=== PATIENT | male | born 1950 | race Caucasian/White ===

== ENCOUNTER 2023-10-01 15:54 | Observation (INO) | payer MEDICARE ==
[2023-10-01 17:26] LABS: Absolute Neutrophil Ct (ANC) 5.55 x10^3/uL (1.4-6.9); BASOPHIL % 0.5 % (0.0-0.4); Basophil (Absolute #) 0.04 x10^3/uL (0-0.4); Eosinophil % 1.6 % (0.00-5.0); Eosinophil (Absolute #) 0.12 x10^3/uL (0-0.5); Hemoglobin 16.5 g/dL (12.5-18.0); IMMATURE GRAN # 0.02 x10^3u/L (0.00-0.03); IMMATURE GRAN % 0.3 % (0.00-0.4); Lymphocyte (Absolute #) 0.85 x10^3/uL (1.0-4.6); Lymphocytes % 11.7 % (24.0-44.0); Mean Cell Volume 91.9 fL (78-100); Mean Corpuscular Hemoglobin 30.3 pg (26-32); Mean Platelet Volume 10.8 fL (7.5-11.0); Monocyte (Absolute #) 0.71 x10^3/uL (0.0-1.3); Monocytes % 9.7 % (0.0-12.0); Neutrophil % 76.2 % (36.0-66.0); Platelet Count 208 x10^3/uL (150-450); Red Blood Count 5.44 x10^6/uL (4.1-5.6); Red Cell Distribution Width 12.7 % (11.5-14.0); White Blood Count 7.3 x10^3/uL (4.0-10.5)
--- NOTE | 2023-10-01 17:34 | ERPHSYRPT ---
- History of Present Illness Time Seen by Provider: 10/01/23 16:55 Source: patient Exam Limitations: no limitations Patient Subjective Stated Complaint: Pt states "He was at a and he got weak and looked like he was going to pass out. he has had some instances where his sugar drops but this time he ate 4 peanut butter crackers and he just didn't seem to come around as fast." Triage Nursing Assessment: Pt presented alert and oriented X 3, skin pwd. Pt ambulates with an upright steady gait, able to speak in clear full sentences. Pt resting comfortably on the bed. Physician History: Patient is 73-year-old male presents to our ED for evaluation of tw0 syncopal episode. Patient was at a home when symptoms developed. reports patient was sitting in a chair when he passed out twice. No collapse patient states he has not eaten very much. Patient had similar symptoms in the past that was related to a bout of hypoglycemia. Upon arrival patient's blood sugar was 208. No associated chest pain no shortness of breath. No nausea vomiting or diaphoresis. Symptoms are mild to moderate in intensity. No specific worsening improving factors. Patient otherwise feels well. He voices no other complaints or concerns at this time. Patient admits to a history of a left bundle branch block. Portions of this note were created with voice recognition technology. There may be grammatical, spelling, punctuation or sound alike errors Timing/Duration: today Severity: moderate Modifying Factors: Improves With: nothing Associated Symptoms: denies symptoms Allergies/Adverse Reactions: walnut Allergy (Severe, Verified 10/01/23 16:28) anaphylactic Home Medications: Amlodipine Besylate 5 mg [Norvasc 5 mg] 10 mg PO DAILY 10/01/23 [History] Meloxicam [Mobic] 15 mg PO DAILY 10/01/23 [History] atenoloL [Atenolol] 25 mg PO DAILY 10/01/23 [History] Hx Tetanus, Diphtheria Vaccination/Date Given: No Hx Influenza Vaccination/Date Given: No Hx Pneumococcal Vaccination/Date Given: No Immunizations Up to Date: No Travel Risk - International Travel Have you traveled outside of the country in past 3 weeks: No - Coronavirus Screening Are you exhibiting any of the following symptoms?: No Close contact with a COVID-19 positive Pt in past 14-21 Days: No - Vaccine Status Have you recieved a Covid-19 vaccination: Yes [employer]: Moderna - Vaccination Dates Date of 2cond Vaccination (if applicable): 2020 - Review of Systems Constitutional: No Symptoms, No Fever, No Chills Eyes: No Symptoms Ears, Nose, & Throat: No Symptoms Respiratory: No Symptoms, No Cough, No Dyspnea Cardiac: No Symptoms, No Chest Pain, No Edema, No Syncope Abdominal/Gastrointestinal: No Symptoms, No Abdominal Pain, No Nausea, No Vomiting, No Diarrhea Genitourinary Symptoms: No Symptoms, No Dysuria Musculoskeletal: No Symptoms, No Back Pain, No Neck Pain Skin: No Symptoms, No Rash Neurological: No Symptoms, No Dizziness, No Focal Weakness, No Sensory Changes Psychological: No Symptoms Endocrine: No Symptoms Hematologic/Lymphatic: No Symptoms Immunological/Allergic: No Symptoms All Other Systems: Reviewed and Negative - Past Medical History Pertinent Past Medical History: Yes Neurological History: No Pertinent History Cardiac History: Hypertension Respiratory History: No Pertinent History Endocrine Medical History: No Pertinent History Musculoskeletal History: Arthritis Other Medical History: TYLENOL PRN - Past Surgical History Past Surgical History: Yes Other Surgical History: bilateral shoulder. hernia - Social History Smoking Status: Never smoker Exposure to second hand smoke: No Drug Use: none Patient Lives Alone: No - Nursing Vital Signs Nursing Vital Signs: Initial Vital Signs Temperature 97.2 F 10/01/23 16:22 Pulse Rate 80 10/01/23 16:22 Respiratory Rate 20 10/01/23 16:22 Blood Pressure 158/80 10/01/23 16:22 O2 Sat by Pulse Oximetry 98 10/01/23 16:22 Pain Scale Pain Intensity 0 - Physical Exam General Appearance: no apparent distress, alert Eye Exam: PERRL/EOMI, eyes nml inspection Ears, Nose, Throat Exam: normal ENT inspection, TMs normal, pharynx normal, moist mucous membranes Neck Exam: normal inspection, non-tender, supple, full range of motion Respiratory Exam: normal breath sounds, lungs clear, No respiratory distress Cardiovascular Exam: regular rate/rhythm, normal heart sounds, normal peripheral pulses Gastrointestinal/Abdomen Exam: soft, normal bowel sounds, No tenderness, No mass Back Exam: normal inspection, normal range of motion, No CVA tenderness, No vertebral tenderness Extremity Exam: normal inspection, normal range of motion, pelvis stable Neurologic Exam: alert, oriented x 3, cooperative, normal mood/affect, nml cerebellar function, nml station & gait, sensation nml, No motor deficits Skin Exam: normal color, warm, dry, No rash Lymphatic Exam: No adenopathy SpO2 Interpretation: normal SpO2: 98 O2 Delivery: Room Air - Course Nursing assessment & vital signs reviewed: Yes EKG Interpreted by Me: RATE (78), Sinus Rhythm, NORMAL AXIS, Right Bundle Branch Block - CT Exams Head CT Interpretation: Tele-radiologist Report (Continued normal head) Ordered Tests: Active Orders 24 hr Category Date Time Status Feed Weigher STAT Care 10/01/23 17:07 Active EKG-ER Only STAT Care 10/01/23 17:07 Active IV Insertion STAT Care 10/01/23 17:07 Active Pulse Oximetry (ED) STAT Care 10/01/23 17:07 Active HEAD WITHOUT CONTRAST [CT] Stat Exams 10/01/23 17:43 Taken CBC W DIFF Stat Lab 10/01/23 17:23 Completed CMP Stat Lab 10/01/23 17:23 Completed D-DIMER QUANTITATIVE Stat Lab 10/01/23 17:23 Completed NT PRO BNPII Stat Lab 10/01/23 17:23 Completed POCT GLUCOSE Stat Lab 10/01/23 16:13 Completed TROPONIN Q4H Lab 10/01/23 17:23 Completed TROPONIN Q4H Lab 10/01/23 21:15 Ordered TROPONIN Q4H Lab 10/02/23 01:15 Ordered Transfer Order Routine Transfer 10/01/23 Ordered Lab/Rad Data: Laboratory Result Diagrams 10/01/23 17:23 10/01/23 17:23 Laboratory Results 10/01/23 10/01/23 10/01/23 Range/Units 17:23 17:23 17:23 WBC (4.0-10.5) x10^3/uL RBC (4.1-5.6) x10^6/uL Hgb (12.5-18.0) g/dL Hct (42-50) % MCV (78-100) fL MCH (26-32) pg MCHC (32-36) g/dL RDW (11.5-14.0) % Plt Count (150-450) x10^3/uL MPV (7.5-11.0) fL Gran % (36.0-66.0) % Immature Gran % (Auto) (0.00-0.4) % Nucleat RBC Rel Count (0.00-0.1) % Eos # (Auto) (0-0.5) x10^3/uL Immature Gran # (Auto) (0.00-0.03) x10^3u/L Absolute Lymphs (auto) (1.0-4.6) x10^3/uL Absolute Monos (auto) (0.0-1.3) x10^3/uL Absolute Nucleated RBC (0.00-0.01) x10^3u/L Lymphocytes % (24.0-44.0) % Monocytes % (0.0-12.0) % Eosinophils % (0.00-5.0) % Basophils % (0.0-0.4) % Absolute Granulocytes (1.4-6.9) x10^3/uL Basophils # (0-0.4) x10^3/uL D-Dimer 0.37 (0.0-0.50) mg/L Sodium (137-145) mmol/L Potassium (3.5-5.1) mmol/L Chloride (98-107) mmol/L Carbon Dioxide (22-30) mmol/L Anion Gap (5-15) MEQ/L BUN (9-20) mg/dL Creatinine (0.66-1.25) mg/dL Estimated GFR ML/MIN Glucose (74-106) mg/dL POC Glucometer (74 to 106) mg/dL Calcium (8.4-10.2) mg/dL Total Bilirubin (0.2-1.3) mg/dL AST (17-59) U/L ALT (0-50) U/L Alkaline Phosphatase (38-126) U/L Troponin I < 0.012 (0.000-0.034) ng/mL NT-Pro-B Natriuret Pep 556 (<300) pg/mL Serum Total Protein (6.3-8.2) g/dL Albumin (3.5-5.0) g/dL 10/01/23 10/01/23 10/01/23 Range/Units 17:23 17:23 16:13 WBC 7.3 (4.0-10.5) x10^3/uL RBC 5.44 (4.1-5.6) x10^6/uL Hgb 16.5 (12.5-18.0) g/dL Hct 50.0 (42-50) % MCV 91.9 (78-100) fL MCH 30.3 (26-32) pg MCHC 33.0 (32-36) g/dL RDW 12.7 (11.5-14.0) % Plt Count 208 (150-450) x10^3/uL MPV 10.8 (7.5-11.0) fL Gran % 76.2 H (36.0-66.0) % Immature Gran % (Auto) 0.3 (0.00-0.4) % Nucleat RBC Rel Count 0.0 (0.00-0.1) % Eos # (Auto) 0.12 (0-0.5) x10^3/uL Immature Gran # (Auto) 0.02 (0.00-0.03) x10^3u/L Absolute Lymphs (auto) 0.85 L (1.0-4.6) x10^3/uL Absolute Monos (auto) 0.71 (0.0-1.3) x10^3/uL Absolute Nucleated RBC 0.00 (0.00-0.01) x10^3u/L Lymphocytes % 11.7 L (24.0-44.0) % Monocytes % 9.7 (0.0-12.0) % Eosinophils % 1.6 (0.00-5.0) % Basophils % 0.5 (0.0-0.4) % Absolute Granulocytes 5.55 (1.4-6.9) x10^3/uL Basophils # 0.04 (0-0.4) x10^3/uL D-Dimer (0.0-0.50) mg/L Sodium 136 L (137-145) mmol/L Potassium 4.2 (3.5-5.1) mmol/L Chloride 103 (98-107) mmol/L Carbon Dioxide 25 (22-30) mmol/L Anion Gap 12.5 (5-15) MEQ/L BUN 21 H (9-20) mg/dL Creatinine 0.66 (0.66-1.25) mg/dL Estimated GFR 98.4 ML/MIN Glucose 151 H (74-106) mg/dL POC Glucometer 208 H (74 to 106) mg/dL Calcium 9.1 (8.4-10.2) mg/dL Total Bilirubin 0.50 (0.2-1.3) mg/dL AST 27 (17-59) U/L ALT 17 (0-50) U/L Alkaline Phosphatase 81 (38-126) U/L Troponin I (0.000-0.034) ng/mL NT-Pro-B Natriuret Pep (<300) pg/mL Serum Total Protein 7.2 (6.3-8.2) g/dL Albumin 4.1 (3.5-5.0) g/dL - Progress Progress: improved Progress Note: Case discussed with Dr. Tang at 7:[address] Tang accepts admission to observation. Plan of care discussed with patient. He agrees to admission at [facility] for further evaluation and treatment. Of note patient reports he has a known left bundle branch block. We attempted to obtain an old EKG for comparison. However in spite of our attempts contact the outside hospitals we do not have a old EKG at this time. Patient is a 73-year-old male presents to our ED with a syncopal episode. Patient had a similar episode in the past due to hypoglycemia. Patient's blood glucose upon arrival to our ED was 208. However states that they gave patient a sugary drink prior to arrival. Patient stated that he was having some brain fog. Physical exam including neuroexam was otherwise negative. CBC CMP essentially nonremarkable. D-dimer negative. Troponin negative. CT head negative for acute intracranial pathology. Patient will be admitted for syncopal workup. Portions of this note were created with voice recognition technology. There may be grammatical, spelling, punctuation or sound alike errors Complexity of problem addressed is moderate acute complicated No critical care time Complexity of data reviewed and analyzed is extensive. Test ordered test reviewed. Results analyzed and correlated clinically with history and physical examination. Management discussed with hospitalist Dr. Tang who accepts admission 7:49 PM. Risk of complication and or risk of morbidity/mortality of patient management is high. Patient requires hospitalization for further evaluation and treatment. Vital stable. Time spent to admit patient approximately 15 to 20 minutes. Plan of care established for shared decision making. No social determinants of health present impede follow-up. Portions of this note were created with voice recognition technology. There may be grammatical, spelling, punctuation or sound alike errors 10/01/23 19:49 Discussed with : Other (Dr. Tang) Counseled pt/family regarding: lab results, diagnosis, rad results - Departure Departure Disposition: Home Clinical Impression: Syncope, Left bundle branch block Condition: Stable Critical Care Time: No Referrals: PACO HUMPHREY [Primary Care Provider] - Follow up/PCP as directed
[2023-10-01 17:53] LABS: ALBUMIN 4.1 g/dL (3.5-5.0); ANION GAP 12.5 MEQ/L (5-15); BILIRUBIN,TOTAL 0.5 mg/dL (0.2-1.3); Calcium 9.1 mg/dL (8.4-10.2); Creatinine 1 0.66 mg/dL (0.66-1.25); EST GLOMERULAR FILTRATION RATE 98.4 ML/MIN; Potassium 4.2 mmol/L (3.5-5.1); Total Protein 7.2 g/dL (6.3-8.2)
[2023-10-01] MEDS ORDERED: BABY ASPIRIN 81 MG CHEW ONE (21:13)
[2023-10-01] MEDS ORDERED: NITRO-BID 2% UD PACKETS ONE (21:14)
[2023-10-01] MEDS ORDERED: Flomax 0.4 MG PO SCH (23:40)
--- NOTE | 2023-10-02 00:27 | PCM.HP ---
History of Present Illness - Chief Complaint Chief Complaint: Syncope Date: 10/01/23 History of Present Illness: Mr. Valenzuela is a 73 year old male with a past medical history significant for hypertension, prediabetes and previous episode of syncope when he was thought to have low blood sugars who was at a when he became faint and almost passed out. He was given some food but did not snap out of it, so he was taken to the ER. On the way, he ate more sweet things and upon arrival, his blood sugar was 208. He reports that he has been traveling so his diet has not been well balanced and regular as it normally is. He denies any loss of strength, weakness, or slurred speech. No chest pain or palpitations. Initial cardiac enzymes negative. - Review of Systems Constitutional: No Symptoms Ears, Nose, & Throat: No Symptoms Respiratory: No Cough, No Orthopnea, No Short Of Breath Cardiac: No Chest Pain, No Edema Abdominal/Gastrointestinal: No Symptoms Genitourinary Symptoms: No Symptoms Musculoskeletal: No Symptoms Skin: No Symptoms Neurological: No Symptoms Psychological: No Symptoms Endocrine: No Symptoms Medications & Allergies Home Medications: Home Medication List Amlodipine Besylate 5 mg [Norvasc 5 mg] 10 mg PO DAILY 10/01/23 [History Confirmed 10/01/23] Meloxicam [Mobic] 15 mg PO DAILY 10/01/23 [History Confirmed 10/01/23] Tamsulosin HCl 0.4 mg [Flomax 0.4 MG] 0.4 mg PO HS 10/01/23 [History Confirmed 10/01/23] atenoloL [Atenolol] 25 mg PO BID 10/01/23 [History Confirmed 10/01/23] Allergies/Adverse Reactions: Allergies Allergy/AdvReac Type Severity Reaction Status Date / Time walnut Allergy Severe anaphylacti Verified 10/01/23 16:28 c - Past Medical History Past Medical History: Yes Neurological History: No Pertinent History Cardiac History: Hypertension Respiratory History: No Pertinent History Endocrine Medical History: No Pertinent History Musculoskelatal History: Arthritis GI Medical History: No Pertinent History History: No Pertinent History Male Reproductive Disorders: No Pertinent History Comment: TYLENOL PRN - Past Surgical History Past Surgical History: Yes Neuro Surgical History: No Pertinent History Cardiac History: No Pertinent History Respiratory Surgery: No Pertinent History GI Surgical History: No Pertinent History Other Surgical History: bilateral shoulder. hernia repair - Social History Smoking Status: Never smoker Exposure to second hand smoke: No Alcohol: None Drug Use: none - Physical Exam Vital Signs: Vital Signs - 24 hr Temp Pulse Resp BP BP Pulse Ox 10/01/23 23:51 97.6 F 77 24 192/93 94 L 10/01/23 23:45 192/93 10/01/23 21:38 98 10/01/23 21:18 97.0 F 76 18 174/85 98 10/01/23 20:00 81 18 171/87 94 L 10/01/23 19:57 98 10/01/23 19:00 82 20 172/90 98 10/01/23 17:37 97.2 F 80 20 146/76 98 10/01/23 17:23 98 10/01/23 16:22 97.2 F 80 20 158/80 98 General Appearance: no apparent distress Neurologic Exam: alert, oriented x 3 Ears, Nose, Throat Exam: dry mucous membranes Neck Exam: supple Respiratory Exam: No respiratory distress Cardiovascular Exam: regular rate/rhythm Gastrointestinal/Abdomen Exam: soft Extremity Exam: normal inspection, No pedal edema, No swelling Skin Exam: normal color Results - Labs Lab/Micro Results: Lab Results-Last 24 Hours 10/01/23 10/01/23 10/01/23 Range/Units 16:13 17:23 17:23 WBC 7.3 (4.0-10.5) x10^3/uL RBC 5.44 (4.1-5.6) x10^6/uL Hgb 16.5 (12.5-18.0) g/dL Hct 50.0 (42-50) % MCV 91.9 (78-100) fL MCH 30.3 (26-32) pg MCHC 33.0 (32-36) g/dL RDW 12.7 (11.5-14.0) % Plt Count 208 (150-450) x10^3/uL MPV 10.8 (7.5-11.0) fL Gran % 76.2 H (36.0-66.0) % Immature Gran % (Auto) 0.3 (0.00-0.4) % Nucleat RBC Rel Count 0.0 (0.00-0.1) % Eos # (Auto) 0.12 (0-0.5) x10^3/uL Immature Gran # (Auto) 0.02 (0.00-0.03) x10^3u/L Absolute Lymphs (auto) 0.85 L (1.0-4.6) x10^3/uL Absolute Monos (auto) 0.71 (0.0-1.3) x10^3/uL Absolute Nucleated RBC 0.00 (0.00-0.01) x10^3u/L Lymphocytes % 11.7 L (24.0-44.0) % Monocytes % 9.7 (0.0-12.0) % Eosinophils % 1.6 (0.00-5.0) % Basophils % 0.5 (0.0-0.4) % Absolute Granulocytes 5.55 (1.4-6.9) x10^3/uL Basophils # 0.04 (0-0.4) x10^3/uL D-Dimer (0.0-0.50) mg/L Sodium 136 L (137-145) mmol/L Potassium 4.2 (3.5-5.1) mmol/L Chloride 103 (98-107) mmol/L Carbon Dioxide 25 (22-30) mmol/L Anion Gap 12.5 (5-15) MEQ/L BUN 21 H (9-20) mg/dL Creatinine 0.66 (0.66-1.25) mg/dL Estimated GFR 98.4 ML/MIN Glucose 151 H (74-106) mg/dL POC Glucometer 208 H (74 to 106) mg/dL Calcium 9.1 (8.4-10.2) mg/dL Total Bilirubin 0.50 (0.2-1.3) mg/dL AST 27 (17-59) U/L ALT 17 (0-50) U/L Alkaline Phosphatase 81 (38-126) U/L Troponin I (0.000-0.034) ng/mL NT-Pro-B Natriuret Pep (<300) pg/mL Serum Total Protein 7.2 (6.3-8.2) g/dL Albumin 4.1 (3.5-5.0) g/dL 10/01/23 10/01/23 10/01/23 Range/Units 17:23 17:23 17:23 WBC (4.0-10.5) x10^3/uL RBC (4.1-5.6) x10^6/uL Hgb (12.5-18.0) g/dL Hct (42-50) % MCV (78-100) fL MCH (26-32) pg MCHC (32-36) g/dL RDW (11.5-14.0) % Plt Count (150-450) x10^3/uL MPV (7.5-11.0) fL Gran % (36.0-66.0) % Immature Gran % (Auto) (0.00-0.4) % Nucleat RBC Rel Count (0.00-0.1) % Eos # (Auto) (0-0.5) x10^3/uL Immature Gran # (Auto) (0.00-0.03) x10^3u/L Absolute Lymphs (auto) (1.0-4.6) x10^3/uL Absolute Monos (auto) (0.0-1.3) x10^3/uL Absolute Nucleated RBC (0.00-0.01) x10^3u/L Lymphocytes % (24.0-44.0) % Monocytes % (0.0-12.0) % Eosinophils % (0.00-5.0) % Basophils % (0.0-0.4) % Absolute Granulocytes (1.4-6.9) x10^3/uL Basophils # (0-0.4) x10^3/uL D-Dimer 0.37 (0.0-0.50) mg/L Sodium (137-145) mmol/L Potassium (3.5-5.1) mmol/L Chloride (98-107) mmol/L Carbon Dioxide (22-30) mmol/L Anion Gap (5-15) MEQ/L BUN (9-20) mg/dL Creatinine (0.66-1.25) mg/dL Estimated GFR ML/MIN Glucose (74-106) mg/dL POC Glucometer (74 to 106) mg/dL Calcium (8.4-10.2) mg/dL Total Bilirubin (0.2-1.3) mg/dL AST (17-59) U/L ALT (0-50) U/L Alkaline Phosphatase (38-126) U/L Troponin I < 0.012 (0.000-0.034) ng/mL NT-Pro-B Natriuret Pep 556 (<300) pg/mL Serum Total Protein (6.3-8.2) g/dL Albumin (3.5-5.0) g/dL 10/01/23 Range/Units 20:55 WBC (4.0-10.5) x10^3/uL RBC (4.1-5.6) x10^6/uL Hgb (12.5-18.0) g/dL Hct (42-50) % MCV (78-100) fL MCH (26-32) pg MCHC (32-36) g/dL RDW (11.5-14.0) % Plt Count (150-450) x10^3/uL MPV (7.5-11.0) fL Gran % (36.0-66.0) % Immature Gran % (Auto) (0.00-0.4) % Nucleat RBC Rel Count (0.00-0.1) % Eos # (Auto) (0-0.5) x10^3/uL Immature Gran # (Auto) (0.00-0.03) x10^3u/L Absolute Lymphs (auto) (1.0-4.6) x10^3/uL Absolute Monos (auto) (0.0-1.3) x10^3/uL Absolute Nucleated RBC (0.00-0.01) x10^3u/L Lymphocytes % (24.0-44.0) % Monocytes % (0.0-12.0) % Eosinophils % (0.00-5.0) % Basophils % (0.0-0.4) % Absolute Granulocytes (1.4-6.9) x10^3/uL Basophils # (0-0.4) x10^3/uL D-Dimer (0.0-0.50) mg/L Sodium (137-145) mmol/L Potassium (3.5-5.1) mmol/L Chloride (98-107) mmol/L Carbon Dioxide (22-30) mmol/L Anion Gap (5-15) MEQ/L BUN (9-20) mg/dL Creatinine (0.66-1.25) mg/dL Estimated GFR ML/MIN Glucose (74-106) mg/dL POC Glucometer (74 to 106) mg/dL Calcium (8.4-10.2) mg/dL Total Bilirubin (0.2-1.3) mg/dL AST (17-59) U/L ALT (0-50) U/L Alkaline Phosphatase (38-126) U/L Troponin I < 0.012 (0.000-0.034) ng/mL NT-Pro-B Natriuret Pep (<300) pg/mL Serum Total Protein (6.3-8.2) g/dL Albumin (3.5-5.0) g/dL - Radiology Impressions Radiology Exams & Impressions: Radiology Procedures Category Date Time Status HEAD WITHOUT CONTRAST [CT] Stat Exams 10/01/23 17:43 Taken Assessment/Plan (1) Left bundle branch block Current Visit: Yes Status: Acute Assessment & Plan: LBBB - pt aware of this, no plans for intervention 1. Monitor on telemetry 2. Cardiology eval as outpatient if no further syncopal events during hospitalization Code(s): I44.7 - LEFT BUNDLE-BRANCH BLOCK, UNSPECIFIED (2) Syncope Current Visit: Yes Status: Acute Assessment & Plan: Syncope - ? related to low blood sugars as per previous episode but does have LBBB, which may suggest cardiac etiology 1. Admit to hospital for observation 2. Telemetry 3. Trend cardiac enzymes 4. Monitor blood sugars 5. ? need for further cardiac testing 6. DVT/GI prophylaxis Code(s): R55 - SYNCOPE AND COLLAPSE Telemedicine Encounter - Telemedicine Encounter Telemedicine Encounter: The entirety of this encounter was performed via Telemedicine"
[2023-10-02 05:38] LABS: Hematocrit 49.9 % (42-50); Hemoglobin 16.4 g/dL (12.5-18.0); Mean Cell Volume 90.7 fL (78-100); Mean Corpuscular Hemoglobin 29.8 pg (26-32); Mean Corpuscular Hgb Concent. 32.9 g/dL (32-36); Mean Platelet Volume 11.5 fL (7.5-11.0); Platelet Count 230 x10^3/uL (150-450); Red Cell Distribution Width 12.8 % (11.5-14.0); White Blood Count 6.4 x10^3/uL (4.0-10.5)
[2023-10-02 07:15] VITALS: RESP 16
[2023-10-02 07:45] LABS: ALBUMIN 4.1 g/dL (3.5-5.0); Creatinine 1 0.56 mg/dL (0.66-1.25); EST GLOMERULAR FILTRATION RATE 103.4 ML/MIN; Potassium 4.2 mmol/L (3.5-5.1); Total Protein 7.2 g/dL (6.3-8.2)
[2023-10-02 07:46] LABS: ANION GAP 14.2 MEQ/L (5-15)
--- NOTE | 2023-10-02 08:44 | XRAY ---
Indication: Syncope. Multiple contiguous axial images obtained through the head without contrast. Comparison: February 23, 2007 Age-appropriate global atrophy. New finding remote lacunar infarct left basal ganglia. No acute intracranial hemorrhage, abnormal extra-axial fluid collection, or mass effect. Fourth ventricle is midline without hydrocephalus. Midd[place]-white matter differentiation preserved. Bony calvarium intact. Mild mucosal thickening both ethmoid sinuses. Tiny fluid leveling left maxillary and both sphenoid sinuses. Mastoid air cells are clear. Impression: Remote lacunar infarct left basal ganglia and paranasal sinus disease. Remaining CT head without contrast exam is negative.
[2023-10-02] MEDS ORDERED: NON-FORMULARY ITEM (Meloxicam [Mobic] 15 MG Tablet) PO SCH (10:00)
[2023-10-02] MEDS ORDERED: MELOXICAM PO SCH (10:00)
[2023-10-02] MEDS ORDERED: TENORMIN 50 MG PO SCH ×2 (10:00)
[2023-10-02] MEDS ORDERED: NORVASC 5 MG PO SCH (10:00)
--- NOTE | 2023-10-02 10:30 | PCM.DS ---
Discharge Summary Date of Admission: 10/01/23 21:17 Date of Discharge: 10/02/23 Admitting Physician: RIN SKY MD Primary Care Provider: PACO HUMPHREY <MARI TYSON - Last Filed: 10/02/23 12:13> Date of Admission: 10/01/23 21:17 Date of Discharge: 10/02/23 Admitting Physician: RIN SKY MD Primary Care Provider: PACO HUMPHREY <LENI HARKINS - Last Filed: 10/02/23 20:20> Allergies <MARI TYSON - Last Filed: 10/02/23 12:13> <LENI HARKINS - Last Filed: 10/02/23 20:20> Allergies walnut Allergy (Severe, Verified 10/01/23 16:28) anaphylactic Hospital Summary - Hospital Course Hospital Course: Mr. Valenzuela is a 73 year old male with a past medical history significant for hypertension, prediabetes and previous episodes of syncope when he was thought to have low blood sugars. He was at a when he became faint and almost passed out. He was given some food but did not snap out of it, so he was taken to the ER. On the way, he ate more sweet things and upon arrival, his blood sugar was 208. He reports that he has been traveling so his diet has not been well balanced and regular as it normally is. He denies any loss of strength, weakness, or slurred speech. No chest pain or palpitations. Initial cardiac enzymes negative. CT of brain negtive for an acute process. He is feeling much better and would like to head home today. - Vitals & Intake/Output Vital Signs: Vital Signs Temperature 97.0 F 10/02/23 07:14 Pulse Rate 60 10/02/23 09:02 Respiratory Rate 16 10/02/23 07:14 Blood Pressure 131/68 10/02/23 09:02 O2 Sat by Pulse Oximetry 96 10/02/23 07:14 Intake & Output: Intake & Output 09/29/23 09/30/23 10/01/23 10/02/23 11:59 11:59 11:59 11:59 Intake Total 240 Balance 240 Weight 103.6 kg - Lab Result Diagrams: 10/02/23 04:39 10/02/23 04:39 Lab Results-Last 24 Hrs: Lab Results-Last 24 Hours 10/01/23 10/01/23 10/01/23 Range/Units 16:13 17:23 17:23 WBC 7.3 (4.0-10.5) x10^3/uL RBC 5.44 (4.1-5.6) x10^6/uL Hgb 16.5 (12.5-18.0) g/dL Hct 50.0 (42-50) % MCV 91.9 (78-100) fL MCH 30.3 (26-32) pg MCHC 33.0 (32-36) g/dL RDW 12.7 (11.5-14.0) % Plt Count 208 (150-450) x10^3/uL MPV 10.8 (7.5-11.0) fL Gran % 76.2 H (36.0-66.0) % Immature Gran % (Auto) 0.3 (0.00-0.4) % Nucleat RBC Rel Count 0.0 (0.00-0.1) % Eos # (Auto) 0.12 (0-0.5) x10^3/uL Immature Gran # (Auto) 0.02 (0.00-0.03) x10^3u/L Absolute Lymphs (auto) 0.85 L (1.0-4.6) x10^3/uL Absolute Monos (auto) 0.71 (0.0-1.3) x10^3/uL Absolute Nucleated RBC 0.00 (0.00-0.01) x10^3u/L Lymphocytes % 11.7 L (24.0-44.0) % Monocytes % 9.7 (0.0-12.0) % Eosinophils % 1.6 (0.00-5.0) % Basophils % 0.5 (0.0-0.4) % Absolute Granulocytes 5.55 (1.4-6.9) x10^3/uL Basophils # 0.04 (0-0.4) x10^3/uL D-Dimer (0.0-0.50) mg/L Sodium 136 L (137-145) mmol/L Potassium 4.2 (3.5-5.1) mmol/L Chloride 103 (98-107) mmol/L Carbon Dioxide 25 (22-30) mmol/L Anion Gap 12.5 (5-15) MEQ/L BUN 21 H (9-20) mg/dL Creatinine 0.66 (0.66-1.25) mg/dL Estimated GFR 98.4 ML/MIN Glucose 151 H (74-106) mg/dL POC Glucometer 208 H (74 to 106) mg/dL Hemoglobin A1c (4.5-6.0) % Calcium 9.1 (8.4-10.2) mg/dL Total Bilirubin 0.50 (0.2-1.3) mg/dL AST 27 (17-59) U/L ALT 17 (0-50) U/L Alkaline Phosphatase 81 (38-126) U/L Troponin I (0.000-0.034) ng/mL NT-Pro-B Natriuret Pep (<300) pg/mL Serum Total Protein 7.2 (6.3-8.2) g/dL Albumin 4.1 (3.5-5.0) g/dL 10/01/23 10/01/23 10/01/23 Range/Units 17:23 17:23 17:23 WBC (4.0-10.5) x10^3/uL RBC (4.1-5.6) x10^6/uL Hgb (12.5-18.0) g/dL Hct (42-50) % MCV (78-100) fL MCH (26-32) pg MCHC (32-36) g/dL RDW (11.5-14.0) % Plt Count (150-450) x10^3/uL MPV (7.5-11.0) fL Gran % (36.0-66.0) % Immature Gran % (Auto) (0.00-0.4) % Nucleat RBC Rel Count (0.00-0.1) % Eos # (Auto) (0-0.5) x10^3/uL Immature Gran # (Auto) (0.00-0.03) x10^3u/L Absolute Lymphs (auto) (1.0-4.6) x10^3/uL Absolute Monos (auto) (0.0-1.3) x10^3/uL Absolute Nucleated RBC (0.00-0.01) x10^3u/L Lymphocytes % (24.0-44.0) % Monocytes % (0.0-12.0) % Eosinophils % (0.00-5.0) % Basophils % (0.0-0.4) % Absolute Granulocytes (1.4-6.9) x10^3/uL Basophils # (0-0.4) x10^3/uL D-Dimer 0.37 (0.0-0.50) mg/L Sodium (137-145) mmol/L Potassium (3.5-5.1) mmol/L Chloride (98-107) mmol/L Carbon Dioxide (22-30) mmol/L Anion Gap (5-15) MEQ/L BUN (9-20) mg/dL Creatinine (0.66-1.25) mg/dL Estimated GFR ML/MIN Glucose (74-106) mg/dL POC Glucometer (74 to 106) mg/dL Hemoglobin A1c (4.5-6.0) % Calcium (8.4-10.2) mg/dL Total Bilirubin (0.2-1.3) mg/dL AST (17-59) U/L ALT (0-50) U/L Alkaline Phosphatase (38-126) U/L Troponin I < 0.012 (0.000-0.034) ng/mL NT-Pro-B Natriuret Pep 556 (<300) pg/mL Serum Total Protein (6.3-8.2) g/dL Albumin (3.5-5.0) g/dL 10/01/23 10/02/23 10/02/23 Range/Units 20:55 04:30 04:39 WBC (4.0-10.5) x10^3/uL RBC (4.1-5.6) x10^6/uL Hgb (12.5-18.0) g/dL Hct (42-50) % MCV (78-100) fL MCH (26-32) pg MCHC (32-36) g/dL RDW (11.5-14.0) % Plt Count (150-450) x10^3/uL MPV (7.5-11.0) fL Gran % (36.0-66.0) % Immature Gran % (Auto) (0.00-0.4) % Nucleat RBC Rel Count (0.00-0.1) % Eos # (Auto) (0-0.5) x10^3/uL Immature Gran # (Auto) (0.00-0.03) x10^3u/L Absolute Lymphs (auto) (1.0-4.6) x10^3/uL Absolute Monos (auto) (0.0-1.3) x10^3/uL Absolute Nucleated RBC (0.00-0.01) x10^3u/L Lymphocytes % (24.0-44.0) % Monocytes % (0.0-12.0) % Eosinophils % (0.00-5.0) % Basophils % (0.0-0.4) % Absolute Granulocytes (1.4-6.9) x10^3/uL Basophils # (0-0.4) x10^3/uL D-Dimer (0.0-0.50) mg/L Sodium (137-145) mmol/L Potassium (3.5-5.1) mmol/L Chloride (98-107) mmol/L Carbon Dioxide (22-30) mmol/L Anion Gap (5-15) MEQ/L BUN (9-20) mg/dL Creatinine (0.66-1.25) mg/dL Estimated GFR ML/MIN Glucose (74-106) mg/dL POC Glucometer (74 to 106) mg/dL Hemoglobin A1c 5.20 (4.5-6.0) % Calcium (8.4-10.2) mg/dL Total Bilirubin (0.2-1.3) mg/dL AST (17-59) U/L ALT (0-50) U/L Alkaline Phosphatase (38-126) U/L Troponin I < 0.012 < 0.012 (0.000-0.034) ng/mL NT-Pro-B Natriuret Pep (<300) pg/mL Serum Total Protein (6.3-8.2) g/dL Albumin (3.5-5.0) g/dL 10/02/23 10/02/23 10/02/23 Range/Units 04:39 04:39 08:03 WBC 6.4 (4.0-10.5) x10^3/uL RBC 5.50 (4.1-5.6) x10^6/uL Hgb 16.4 (12.5-18.0) g/dL Hct 49.9 (42-50) % MCV 90.7 (78-100) fL MCH 29.8 (26-32) pg MCHC 32.9 (32-36) g/dL RDW 12.8 (11.5-14.0) % Plt Count 230 (150-450) x10^3/uL MPV 11.5 H (7.5-11.0) fL Gran % (36.0-66.0) % Immature Gran % (Auto) (0.00-0.4) % Nucleat RBC Rel Count (0.00-0.1) % Eos # (Auto) (0-0.5) x10^3/uL Immature Gran # (Auto) (0.00-0.03) x10^3u/L Absolute Lymphs (auto) (1.0-4.6) x10^3/uL Absolute Monos (auto) (0.0-1.3) x10^3/uL Absolute Nucleated RBC (0.00-0.01) x10^3u/L Lymphocytes % (24.0-44.0) % Monocytes % (0.0-12.0) % Eosinophils % (0.00-5.0) % Basophils % (0.0-0.4) % Absolute Granulocytes (1.4-6.9) x10^3/uL Basophils # (0-0.4) x10^3/uL D-Dimer (0.0-0.50) mg/L Sodium 137 (137-145) mmol/L Potassium 4.2 (3.5-5.1) mmol/L Chloride 106 (98-107) mmol/L Carbon Dioxide 21 L (22-30) mmol/L Anion Gap 14.2 (5-15) MEQ/L BUN 15 (9-20) mg/dL Creatinine 0.56 L (0.66-1.25) mg/dL Estimated GFR 103.4 ML/MIN Glucose 114 H (74-106) mg/dL POC Glucometer (74 to 106) mg/dL Hemoglobin A1c (4.5-6.0) % Calcium 9.0 (8.4-10.2) mg/dL Total Bilirubin 1.00 (0.2-1.3) mg/dL AST 27 (17-59) U/L ALT 16 (0-50) U/L Alkaline Phosphatase 79 (38-126) U/L Troponin I < 0.012 (0.000-0.034) ng/mL NT-Pro-B Natriuret Pep (<300) pg/mL Serum Total Protein 7.2 (6.3-8.2) g/dL Albumin 4.1 (3.5-5.0) g/dL - Radiology Exams Ordered Rad Exams-Entire Visit: Radiology Procedures Category Date Time Status HEAD WITHOUT CONTRAST [CT] Stat Exams 10/01/23 17:43 Completed <MARI TYSON - Last Filed: 10/02/23 12:13> - Vitals & Intake/Output Vital Signs: Vital Signs Temperature 97.6 F 10/02/23 11:57 Pulse Rate 76 10/02/23 11:57 Respiratory Rate 16 10/02/23 11:57 Blood Pressure 153/80 10/02/23 11:57 O2 Sat by Pulse Oximetry 95 10/02/23 11:57 Intake & Output: Intake & Output 09/30/23 10/01/23 10/02/23 10/03/23 11:59 11:59 11:59 11:59 Intake Total 240 240 Balance 240 240 Weight 103.6 kg - Lab Result Diagrams: 10/02/23 04:39 10/02/23 04:39 Lab Results-Last 24 Hrs: Lab Results-Last 24 Hours 10/01/23 10/02/23 10/02/23 Range/Units 20:55 04:30 04:39 WBC (4.0-10.5) x10^3/uL RBC (4.1-5.6) x10^6/uL Hgb (12.5-18.0) g/dL Hct (42-50) % MCV (78-100) fL MCH (26-32) pg MCHC (32-36) g/dL RDW (11.5-14.0) % Plt Count (150-450) x10^3/uL MPV (7.5-11.0) fL Sodium (137-145) mmol/L Potassium (3.5-5.1) mmol/L Chloride (98-107) mmol/L Carbon Dioxide (22-30) mmol/L Anion Gap (5-15) MEQ/L BUN (9-20) mg/dL Creatinine (0.66-1.25) mg/dL Estimated GFR ML/MIN Glucose (74-106) mg/dL POC Glucometer (74 to 106) mg/dL Hemoglobin A1c 5.20 (4.5-6.0) % Calcium (8.4-10.2) mg/dL Total Bilirubin (0.2-1.3) mg/dL AST (17-59) U/L ALT (0-50) U/L Alkaline Phosphatase (38-126) U/L Troponin I < 0.012 < 0.012 (0.000-0.034) ng/mL Serum Total Protein (6.3-8.2) g/dL Albumin (3.5-5.0) g/dL 10/02/23 10/02/23 10/02/23 Range/Units 04:39 04:39 08:03 WBC 6.4 (4.0-10.5) x10^3/uL RBC 5.50 (4.1-5.6) x10^6/uL Hgb 16.4 (12.5-18.0) g/dL Hct 49.9 (42-50) % MCV 90.7 (78-100) fL MCH 29.8 (26-32) pg MCHC 32.9 (32-36) g/dL RDW 12.8 (11.5-14.0) % Plt Count 230 (150-450) x10^3/uL MPV 11.5 H (7.5-11.0) fL Sodium 137 (137-145) mmol/L Potassium 4.2 (3.5-5.1) mmol/L Chloride 106 (98-107) mmol/L Carbon Dioxide 21 L (22-30) mmol/L Anion Gap 14.2 (5-15) MEQ/L BUN 15 (9-20) mg/dL Creatinine 0.56 L (0.66-1.25) mg/dL Estimated GFR 103.4 ML/MIN Glucose 114 H (74-106) mg/dL POC Glucometer (74 to 106) mg/dL Hemoglobin A1c (4.5-6.0) % Calcium 9.0 (8.4-10.2) mg/dL Total Bilirubin 1.00 (0.2-1.3) mg/dL AST 27 (17-59) U/L ALT 16 (0-50) U/L Alkaline Phosphatase 79 (38-126) U/L Troponin I < 0.012 (0.000-0.034) ng/mL Serum Total Protein 7.2 (6.3-8.2) g/dL Albumin 4.1 (3.5-5.0) g/dL 10/02/23 Range/Units 11:22 WBC (4.0-10.5) x10^3/uL RBC (4.1-5.6) x10^6/uL Hgb (12.5-18.0) g/dL Hct (42-50) % MCV (78-100) fL MCH (26-32) pg MCHC (32-36) g/dL RDW (11.5-14.0) % Plt Count (150-450) x10^3/uL MPV (7.5-11.0) fL Sodium (137-145) mmol/L Potassium (3.5-5.1) mmol/L Chloride (98-107) mmol/L Carbon Dioxide (22-30) mmol/L Anion Gap (5-15) MEQ/L BUN (9-20) mg/dL Creatinine (0.66-1.25) mg/dL Estimated GFR ML/MIN Glucose (74-106) mg/dL POC Glucometer 105 (74 to 106) mg/dL Hemoglobin A1c (4.5-6.0) % Calcium (8.4-10.2) mg/dL Total Bilirubin (0.2-1.3) mg/dL AST (17-59) U/L ALT (0-50) U/L Alkaline Phosphatase (38-126) U/L Troponin I (0.000-0.034) ng/mL Serum Total Protein (6.3-8.2) g/dL Albumin (3.5-5.0) g/dL - Radiology Exams Ordered Rad Exams-Entire Visit: Radiology Procedures Category Date Time Status HEAD WITHOUT CONTRAST [CT] Stat Exams 10/01/23 17:43 Completed <LENI HARKINS - Last Filed: 10/02/23 20:20> Discharge Exam General Appearance: no apparent distress, alert Neurologic Exam: alert, oriented x 3, cooperative, normal mood/affect, nml cerebellar function, sensation nml, No motor deficits Eye Exam: PERRL, EOMI, eyes nml inspection Ears, Nose, Throat Exam: normal ENT inspection, pharynx normal, moist mucous membranes Neck Exam: normal inspection, non-tender, supple, full range of motion Respiratory Exam: normal breath sounds, lungs clear, No respiratory distress Cardiovascular Exam: regular rate/rhythm, normal heart sounds Gastrointestinal/Abdomen Exam: soft, No tenderness, No mass Male Genitalia Exam: deferred Rectal Exam: deferred Back Exam: normal inspection, normal range of motion, No CVA tenderness, No vertebral tenderness Extremity Exam: normal inspection, normal range of motion Skin Exam: normal color, warm, dry <MARI TYSON - Last Filed: 10/02/23 12:13> Final Diagnosis/Problem List - Final Discharge Diagnosis/Problem (1) Syncope Status: Acute Assessment & Plan: - tele - Trop x 3 negative - no episode since admission and eating well - pt has has similar episodes in the past from not eating Code(s): R55 - SYNCOPE AND COLLAPSE (2) Hypoglycemia Status: Acute Assessment & Plan: - resolved since eating a regular diet - known hx with not eating in the past Code(s): E16.2 - HYPOGLYCEMIA, UNSPECIFIED (3) Left bundle branch block Status: Acute Assessment & Plan: - As seen on EKG and tele - F/U OP for further cardiac workup Code(s): I44.7 - LEFT BUNDLE-BRANCH BLOCK, UNSPECIFIED (4) HTN (hypertension) Status: Acute Assessment & Plan: - resume home meds - Bp stable Code(s): I10 - ESSENTIAL (PRIMARY) HYPERTENSION <MARI TYSON - Last Filed: 10/02/23 12:13> - Discharge Discharge Date: 10/02/23 <MARI TYSON - Last Filed: 10/02/23 12:13> <LENI HARKINS - Last Filed: 10/02/23 20:20> - Discharge Disposition: Home, Self-Care Condition: Stable Prescriptions: Continue Amlodipine Besylate 5 mg [Norvasc 5 mg] 10 mg PO DAILY atenoloL [Atenolol] 25 mg PO BID Meloxicam [Mobic] 15 mg PO DAILY Tamsulosin HCl 0.4 mg [Flomax 0.4 MG] 0.4 mg PO HS Instructions: Near Fainting (DC) Additional Instructions: FOLLOW-UP WITH YOUR PRIMARY CARE PROVIDER IN 1 WEEK. Please discuss case with cardiology for further care and follow up when you get home. Follow up with: PACO HUMPHREY [Primary Care Provider] - Forms: Discharge Instructions YOU Encounter - YOU Encounter Attestation YOU Encounter Attestation: "ROSITA Montemayor andhavediscussed pertinent aspects of their care with Mari Bales agree with the history, physical exam (any modifications based on my personal exam will be noted below), assessment, and plan as outlined in original note. Please see immediately below for my summary of findings and additional assessment and plan along with any meaningful corrections/explanations to the Subjective/Objective portions of the YOU note will be noted." My portion of the encounter took place via telemedicine. 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 Advised to follow up with cardiology. Currently syncopal episode likely due to poor oral intake and hypoglycemia. Okay to DC home <LENI HARKINS - Last Filed: 10/02/23 20:20>
[2023-10-02 11:58] VITALS: BP 153/80; PULSE 76; TEMP 97.6; O2SAT 95
== END 2023-10-02 13:15 | disposition home or self-care (01) ==
LOC: ED 15:54 → MED SURG 21:17
PROVIDERS: ADMIT Internal Medicine Nephrology; ATTEND Internal Medicine Nephrology
DX: R55 Syncope and collapse (principal); E16.2 Hypoglycemia, unspecified; I44.7 Left bundle-branch block, unspecified; I10 Essential (primary) hypertension; Z79.899 Other long term (current) drug therapy; Z20.828 Contact with and (suspected) exposure to other viral communicable diseases
CPT/HCPCS: 36000; 36415; 70450; 80053; 82947; 83036; 83880; 84484; 85025; 85027; 85379; 93005; 93268; 94760; 99283; A9270-GY; G0378